=== PATIENT | female | born 1970 | race Asian ===

== ENCOUNTER 2019-03-17 16:26 | Emergency (ER) | payer BC | END 2019-03-17 17:00 | disposition home or self-care (01) | LOC: E/R 16:26 | DX: H10.023 Other mucopurulent conjunctivitis, bilateral (principal); I10 Essential (primary) hypertension; H10.13 Acute atopic conjunctivitis, bilateral | CPT/HCPCS: 99283 ==

== ENCOUNTER → 2019-05-12 | Outpatient (CLI) | payer BC ==
[2019-05-12 17:26] LABS: ADD MAN DIFF? NO
[2019-05-12 17:29] LABS: BASOPHIL # 0.1 10^3/ul (0.0-0.1); BASOPHILS % 0.8 % (0.0-2.0); EOSINOPHILS # 0.5 10^3/ul (0.0-0.5); EOSINOPHILS % 4.4 % (0.0-7.0); HEMATOCRIT 55.2 % (37.0-47.0); HEMOGLOBIN 17.4 g/dl (12.0-16.0); LYMPHOCYTES # 2.4 10^3/ul (0.8-2.9); LYMPHOCYTES % 21.2 % (15.0-51.0); MEAN CORPUSCULAR HEMOGLOBIN 28.2 pg (29.0-33.0); MEAN CORPUSCULAR HGB CONC 31.5 g/dl (32.0-37.0); MEAN CORPUSCULAR VOLUME 89.3 fl (82.0-101.0); MEAN PLATELET VOLUME 10.1 fl (7.4-10.4); MONOCYTE # 0.9 10^3/ul (0.3-0.9); MONOCYTES % 8.1 % (0.0-11.0); NEUTROPHIL # 7.3 10^3/ul (1.6-7.5); NEUTROPHILS % 65.1 % (39.0-77.0); PLATELET COUNT 286 10^3/UL (140-415); RED BLOOD COUNT 6.18 10^6/ul (4.20-5.40); RED CELL DISTRIBUTION WIDTH 13.1 % (11.5-14.5)
[2019-05-12 17:29] LABS: WHITE BLOOD COUNT 11.2 10^3/ul (4.8-10.8)
[2019-05-12 17:46] LABS: ADD UMIC YES; UR AMORPHOUS CRYSTAL FEW /HPF (NONE SEEN); UR ASCORBIC ACID NEGATIVE (NEGATIVE); UR BACTERIA FEW /HPF (NONE SEEN); UR BILIRUBIN (Dip) NEGATIVE (NEGATIVE); UR BLOOD (Dip) NEGATIVE (NEGATIVE); UR CLARITY CLOUDY (CLEAR); UR COLOR YELLOW (YELLOW); UR GLUCOSE (Dip) NEGATIVE (NEGATIVE); UR KETONES (Dip) NEGATIVE (NEGATIVE); UR LEUKOCYTE ESTERASE (Dip) TRACE Leu/ul (NEGATIVE); UR MUCUS FEW /HPF (NONE SEEN); UR NITRITE (Dip) NEGATIVE (NEGATIVE); UR RBC 3 /HPF (0-5); UR SQUAMOUS EPITHELIAL CELL FEW /HPF (FEW); UR TOTAL PROTEIN (Dip) NEGATIVE (NEGATIVE); UR UROBILINOGEN (Dip) NEGATIVE (NEGATIVE); UR WBC 2 /HPF (0-5)
[2019-05-12 17:50] LABS: ALANINE AMINOTRANSFERASE 77 IU/L (13-69); ALBUMIN 4.6 g/dl (3.3-4.9); ALBUMIN/GLOBULIN RATIO 1.15; ALKALINE PHOSPHATASE 74 IU/L (42-121); ANION GAP 13 (5-13); ASPARTATE AMINO TRANSFERASE 62 IU/L (15-46); BILIRUBIN,INDIRECT 0.4 mg/dl (0-1.1); BILIRUBIN,TOTAL 0.4 mg/dl (0.2-1.3); BLOOD UREA NITROGEN 9 mg/dl (7-20); CALCIUM 10.2 mg/dl (8.4-10.2); CARBON DIOXIDE 23 mmol/L (21-31); CHLORIDE 104 mmol/L (97-110); CREATININE 0.74 mg/dl (0.44-1.00); Estimated GFR > 60 mL/min (>60); GLUCOSE 98 mg/dl (70-220); POTASSIUM 4.4 mmol/L (3.5-5.1); SODIUM 140 mmol/L (135-144); TOTAL PROTEIN 8.6 g/dl (6.1-8.1)
[2019-05-12 17:51] LABS: INR 0.91; PROTIME 12.4 Sec (11.9-14.9)
[2019-05-12 17:52] LABS: PARTIAL THROMBOPLASTIN TIME 28.5 Sec (23.0-35.0)
== END | disposition home or self-care (01) ==
LOC: LAB 17:05
DX: Z01.818 Encounter for other preprocedural examination (principal); D25.9 Leiomyoma of uterus, unspecified
CPT/HCPCS: 80053; 81001; 85025; 85610; 85730; 87086

== ENCOUNTER 2019-05-19 05:49 | Inpatient (IN) | payer BC ==
[2019-05-19] MEDS ORDERED: PROPOFOL 20 ML (07:24)
[2019-05-19] MEDS ORDERED: EPHEDrine 25 MG/5 ML SYG (07:24)
[2019-05-19] MEDS: LACTATED RINGER'S 1,000 ML IV ×2 (07:24→17:13)
[2019-05-19] MEDS ORDERED: DESFLURANE 15 MIN (07:24)
[2019-05-19] MEDS ORDERED: morphine SULFATE/PF (10 MG/10 ML) INJ (07:25)
[2019-05-19] MEDS ORDERED: ONDANSETRON 4 MG INJ (07:25)
[2019-05-19] MEDS ORDERED: METOCLOPRAMIDE 10 MG INJ (07:25)
[2019-05-19] MEDS ORDERED: MIDAZOLAM 1 MG/ML 2 ML INJ (07:25)
[2019-05-19] MEDS ORDERED: CEFAZOLIN 1 GM INJ (07:25)
[2019-05-19] MEDS ORDERED: KETOROLAC 30 MG INJ (07:25)
[2019-05-19] MEDS ORDERED: FENTAnyl 50 MCG/ML VIAL (07:25)
[2019-05-19] MEDS ORDERED: FENTAnyl 50 MCG/ML VIAL IV ×3 (07:30)
[2019-05-19] MEDS ORDERED: HYDROmorphONE 1 MG/5 ML IV SYRINGE IV ×2 (07:30)
[2019-05-19] MEDS ORDERED: KETOROLAC 30 MG INJ IV (07:30)
[2019-05-19] MEDS ORDERED: MEPERIDINE 25 MG INJ IV (07:30)
[2019-05-19] MEDS ORDERED: ONDANSETRON 4 MG INJ IV (07:30)
[2019-05-19] MEDS ORDERED: DIPHENHYDRAMINE 50 MG INJ IV (07:30)
[2019-05-19] MEDS: HYDROmorphONE 1 MG/5 ML IV SYRINGE IV (11:25)
[2019-05-19] MEDS ORDERED: HYDROCODONE/APAP (5/325) TAB PO (11:30)
[2019-05-19] MEDS: CEFAZOLIN 2 GM/50 ML (PMX) 50 ML IVPB (12:39)
[2019-05-19] MEDS: ONDANSETRON 4 MG INJ IV (20:01)
[2019-05-20] MEDS: LACTATED RINGER'S 1,000 ML IV ×3 (00:21→08:31)
[2019-05-20] MEDS: IBUPROFEN 600 MG TAB PO (01:52)
[2019-05-20 05:09] LABS: ADD MAN DIFF? NO
[2019-05-20 05:19] LABS: WHITE BLOOD COUNT 14.2 10^3/ul (4.8-10.8)
[2019-05-20 05:19] LABS: BASOPHILS % 0.3 % (0.0-2.0); EOSINOPHILS # 0.2 10^3/ul (0.0-0.5); EOSINOPHILS % 1.1 % (0.0-7.0); HEMATOCRIT 42.2 % (37.0-47.0); HEMOGLOBIN 13.2 g/dl (12.0-16.0); LYMPHOCYTES # 1.8 10^3/ul (0.8-2.9); MEAN CORPUSCULAR HEMOGLOBIN 28.4 pg (29.0-33.0); MEAN CORPUSCULAR HGB CONC 31.3 g/dl (32.0-37.0); MEAN CORPUSCULAR VOLUME 90.8 fl (82.0-101.0); MONOCYTE # 1.1 10^3/ul (0.3-0.9); MONOCYTES % 7.8 % (0.0-11.0); NEUTROPHIL # 10.9 10^3/ul (1.6-7.5); NEUTROPHILS % 77.4 % (39.0-77.0); PLATELET COUNT 215 10^3/UL (140-415); RED BLOOD COUNT 4.65 10^6/ul (4.20-5.40); RED CELL DISTRIBUTION WIDTH 13.6 % (11.5-14.5)
[2019-05-20] MEDS: LORATADINE 10 MG TAB PO (08:31)
[2019-05-20] MEDS: HYDROCODONE/APAP (5/325) TAB PO ×3 (08:35→19:23)
[2019-05-20] MEDS: IBUPROFEN 800 MG TAB PO ×2 (15:37→23:20)
[2019-05-21] MEDS: IBUPROFEN 800 MG TAB PO ×2 (06:27→16:20)
[2019-05-21] MEDS: LORATADINE 10 MG TAB PO (08:57)
[2019-05-21] MEDS: HYDROCODONE/APAP (5/325) TAB PO ×2 (12:54→19:42)
== END 2019-05-21 20:50 | disposition home or self-care (01) | DRG 743 ==
LOC: REC 05:49 → MS1 12:20
PROVIDERS: Obstetrics & Gynecology
PROC: 0UT90ZZ Resection of Uterus, Open Approach (ICD-10-PCS; principal; 2019-05-19 07:30)
PROC: 0UT70ZZ Resection of Bilateral Fallopian Tubes, Open Approach (ICD-10-PCS; 2019-05-19 07:30)
DX: N92.0 Excessive and frequent menstruation with regular cycle (principal); D25.1 Intramural leiomyoma of uterus
CPT/HCPCS: 85025; 86850; 86900; 86901; 88305